=== PATIENT | female | born 1995 | race Caucasian/White ===

== ENCOUNTER → 2018-07-17 | Outpatient (CLI) | payer OTHER ==
[2018-07-17 11:10] LABS: PLATELET COUNT, AUTOMATED 281 K/uL (150-450)
== END ==
LOC: LAB 10:46
PROVIDERS: ATTEND Emergency Medicine
DX: R62.50 Unspecified lack of expected normal physiological development in childhood (principal)
CPT/HCPCS: 36415; 82040; 82247; 82310; 82374; 82435; 82565; 82607; 82947; 84075; 84132; 84155; 84295; 84443; 84450; 84460; 84520; 85025